=== PATIENT | female | born 1985 ===

== ENCOUNTER 2017-02-22 18:06 | Emergency (ER) | payer MEDICAID ==
[2017-02-22 18:12] VITALS: BP 158/92
[2017-02-22] MEDS ORDERED: methylPREDNISolone Sodium Succinate 125 MG/2 ML SDV IM ONE (18:23)
--- NOTE | 2017-02-22 20:08 | EDM.PDOC ---
ED HPI GENERAL MEDICAL PROBLEM - General Chief Complaint: Allergic Reaction Stated Complaint: "Stung by a bee" Time Seen by Provider: 02/22/17 18:18 Source of Information: Reports: Patient History Limitations: Reports: No Limitations - History of Present Illness INITIAL COMMENTS - FREE TEXT/NARRATIVE: Zehra is a 32 yo female who presents to the ER with concerns of a bee sting. States she had the same thing happen to her last year and ended up getting an infection, going on antibiotics and steroids. States it became really swollen last year as well. She currently carries an Epipen but hasn't had to use it. States she called the ambulance and they came over and told her tonight it was just a local reaction. She denies any shortness of breath, hives , tongue or throat swelling, no difficulty swallowing. States it just bothers her on her right calf from the sting. Onset: Today Location: Reports: Lower Extremity, Right Severity: Mild Associated Symptoms: Reports: No Other Symptoms Right Leg Pain Score (Numeric/FACES): 6 - Related Data Allergies Allergy/AdvReac Type Severity Reaction Status Date / Time amoxicillin Allergy Hives Verified 02/22/17 18:08 bee venom protein (honey bee) Allergy Rash Verified 02/22/17 18:08 Home Meds: Home Meds EPINEPHrine [Epipen] 0.3 mg IM ONETIME 02/22/17 [History] Escitalopram [Lexapro] 10 mg PO DAILY 02/22/17 [History] Past Medical History HEENT History: Reports: Other (See Below) Other HEENT History: RECONSTRUCTIVE EYE SURGERY IN 1988. Psychiatric History: Reports: Anxiety, Depression - Past Surgical History HEENT Surgical History: Reports: Eye Surgery Female Surgical History: Reports: Other (See Below) Other Female Surgeries/Procedures: "RECONTRUCTIVE BLADDER SURGERY IN 1992" Social & Family History - Tobacco Use Smoking Status *Q: Current Every Day Smoker Years of Tobacco use: 15 Packs/Tins Daily: 0.2 - Caffeine Use Caffeine Use: Reports: None - Recreational Drug Use Recreational Drug Use: No ED ROS ALLERGIC REACTION - Review of Systems Review Of Systems: ROS reveals no pertinent complaints other than HPI. ED EXAM GENERAL NO PERIP PULSE - Physical Exam Exam: See Below Exam Limited By: No Limitations General Appearance: Alert, No Apparent Distress Throat/Mouth: Normal Inspection, Normal Teeth, Normal Gums, Normal Oropharynx, Normal Voice, No Airway Compromise. No: Dysphagia Head: Atraumatic, Normocephalic Neck: Normal Inspection, Supple Respiratory/Chest: No Respiratory Distress, Lungs Clear, Normal Breath Sounds Cardiovascular: Regular Rate, Rhythm, No Murmur Skin Exam: Other (Mild erythema and localized redness surround bee sting. No embedded stinger visualized. Mild tenderness with touch. No signs of cellulitis. No active hives) Course - Vital Signs Last Recorded V/S: Last Vital Signs Temp 99.4 F 02/22/17 18:10 Pulse 82 02/22/17 18:10 Resp 16 02/22/17 18:10 BP 158/92 H 02/22/17 18:10 Pulse Ox 97 02/22/17 18:10 - Orders/Labs/Meds Meds: Medications Discontinued Medications Generic Name Dose Route Start Last Admin Trade Name Freq PRN Reason Stop Dose Admin Methylprednisolone Sodium Succinate 125 mg 02/22/17 18:23 02/22/17 19:07 Solu-Medrol IM 02/22/17 18:24 125 mg ONETIME ONE Administration Departure - Departure Time of Disposition: 19:40 Disposition: Home, Self-Care 01 Condition: Good Clinical Impression: Local reaction to bee sting Qualifiers: Encounter type: initial encounter Injury intent: accidental or unintentional Qualified Code(s): T63.441A - Toxic effect of venom of bees, accidental ( unintentional), initial encounter - Discharge Information Instructions: Bee, Wasp, or Hornet Sting Forms: ED Department Discharge Additional Instructions: 1) Recommend continue taking current dose of Prednisone tomorrow and the next day. 2) Steroid injection given tonight 3) I see no sign of anaphylactic reaction. Advise continue to carry Epipen however as discussed 4) May take over the counter antihistamine as well as directed. 5) Bee sting hand out given 6) Return if any concerns at all. Advise if ever any tongue swelling, throat swelling, shortness of breath, etc.. immediately use Epipen and return to ER 7) May call with any questions as well [phone] - Problem List & Annotations (1) Local reaction to bee sting SNOMED Code(s): 544702731 Code(s): T63.441A - TOXIC EFFECT OF VENOM OF BEES, ACCIDENTAL, INIT Status : Acute Qualifiers: Encounter type: initial encounter Injury intent: accidental or unintentional Qualified Code(s): T63.441A - Toxic effect of venom of bees, accidental (unintentional), initial encounter - Problem List Review Problem List Initiated/Reviewed/Updated: Yes - Assessment/Plan Plan: See additional instructions.
== END 2017-02-22 19:42 | disposition home or self-care (01) ==
LOC: CC.ED 18:06
DX: T63.441A Toxic effect of venom of bees, accidental (unintentional), initial encounter (principal); F41.9 Anxiety disorder, unspecified; F32.9 Major depressive disorder, single episode, unspecified; F17.210 Nicotine dependence, cigarettes, uncomplicated; Z79.899 Other long term (current) drug therapy; Z88.1 Allergy status to other antibiotic agents; Z91.030 Bee allergy status
CPT/HCPCS: 96372; 99282; J2930